=== PATIENT | male | born 1980 | race Caucasian/White ===

== ENCOUNTER 2018-07-09 12:15 | Emergency (ER) | payer OTHER ==
[~2018-07-09 12:15] MED LIST: ASP325 PO; CITA-156 PO; IBU200 PO; LOR10 PO; LORA10TA2 PO; PEN250 PO; PER PO
[2018-07-09] MEDS ORDERED: VALE445C4 PO (12:27)
[2018-07-09] MEDS ORDERED: MULT1TAB54 PO (12:27)
[2018-07-09] MEDS ORDERED: ST.300CA17 PO (12:27)
[2018-07-09] MEDS ORDERED: ACET-1966 PO (12:27)
--- NOTE | 2018-07-09 12:29 | ER Report ---
History and Physical Time Seen By MD: 12:27 Hx. of Stated Complaint: Patient with burn to right lower forearm from steam HPI/ROS CHIEF COMPLAINT: Burn to right forearm HISTORY OF PRESENT ILLNESS: Patient was working in the kitchen and was exposed to he did water vapor sustaining burn to his right forearm. His occurred just prior to coming into the emergency department. Last tetanus shot was in 2013. REVIEW OF SYSTEMS: Respiratory: No cough, no dyspnea. Cardiovascular: No chest pain, no palpitations. Gastrointestinal: No vomiting, no abdominal pain. Musculoskeletal: No back pain. Burn to right forearm Allergies: Coded Allergies: No Known Allergies (Verified Allergy, Mild, 07/09/18) Home Meds Active Scripts Oxycodone Hcl/Acetaminophen (PERCOCET 5-325 MG TABLET) 1 Each Tablet, 1-2 EACH PO Q6H for PAIN, #30 TAB 0 Refills no more than 6 tablets in a 24 hour period Prov:FRANC GASTELUM MD 07/09/18 Reported Medications Valerian Root (VALERIAN ROOT) 445 Mg Capsule, 445 MG PO BID, CAPSULE 07/09/18 Paula's Wort (PAULA'S WORT) 300 Mg Capsule, 300 MG PO BID, CAPSULE 07/09/18 Acetaminophen (TYLENOL) 325 Mg Tablet, 325 MG PO DAILY, TAB 07/09/18 Multivitamin (MULTI-VITAMIN DAILY) 1 Each Tablet, 1 EACH PO DAILY 07/09/18 Discontinued Reported Medications Loratadine (Loratadine) 10 Mg Tablet, 10 MG PO, 0 Refills 02/26/11 Ibuprofen (Motrin) 200 Mg Tab, 200 MG PO, #20 0 Refills 02/26/11 Past Medical/Surgical History Noncontributory towards his chief complaint Hx Smoking: Yes Exposure to Second Hand Smoke?: Yes Hx Substance Use Disorder: No Hx Alcohol Use: No Constitutional Vital Sign - Last 24 Hours 07/09/18 07/09/18 07/09/18 07/09/18 12:19 12:20 12:30 12:45 Temp 99.2 Pulse 94 88 94 Resp 16 B/P (MAP) 151/104 (120) 151/104 143/100 (114) Pulse Ox 92 89 93 O2 Delivery Room Air Physical Exam General appearance: Alert no distress. Respiratory: Chest is non tender, lungs are clear to auscultation. Cardiac: Regular rate and rhythm Examination of the right forearm shows a burn that is approximately 4% body surface area that is superficial partial thickness. No evidence of blistering yet. The burn is not circumferential. The burn involves the volar surface of the right forearm. Medical Decision Making ED Course/Re-evaluation ED Course Plan at this time will be bacitracin dressing to the forearm also give appropriate pain medicine. Decision to Disposition Date: Jul 09, 2018 Decision to Disposition Time: 13:30 Depart Departure Latest Vital Signs Vital Signs Date Time Temp Pulse Resp B/P (MAP) Pulse Ox O2 Delivery O2 Flow Rate FiO2 07/09/18 12:45 94 93 07/09/18 12:30 143/100 (114) 07/09/18 12:20 99.2 16 Room Air Impression: Primary Impression: Burn of forearm, right, second degree Condition: Improved Disposition: HOME OR SELF-CARE New Scripts Oxycodone Hcl/Acetaminophen (PERCOCET 5-325 MG TABLET) 1 Each Tablet 1-2 EACH PO Q6H for PAIN, #30 TAB 0 Refills no more than 6 tablets in a 24 hour period Prov: FRANC GASTELUM MD 07/09/18 Departure Forms: ER Transition Record, Medications Reconciliation, Off Work/School Form, School or Work Release?: Work Number of days to be released: 2 Patient Portal Information Patient Instructions: Second Degree Burn (DC) Problem Qualifiers Primary Impression: Burn of forearm, right, second degree Encounter type: initial encounter Qualified Codes: T22.211A - Burn of second degree of right forearm, initial encounter FRANC GASTELUM MD Jul 09, 2018 12:29
[2018-07-09 12:30] VITALS: BP 143/100
[2018-07-09] MEDS ORDERED: OXYC-865 PO (12:43)
== END 2018-07-09 12:56 | disposition home or self-care (01) ==
LOC: ER 12:50
DX: T22.211A Burn of second degree of right forearm, initial encounter (principal)
CPT/HCPCS: 99282

== ENCOUNTER → 2018-12-25 | Outpatient (CLI) | payer OTHER ==
[~2018-12-25] MED LIST changes: +ACET-1966 PO; +MULT1TAB54 PO; +OXYC-865 PO; +ST.300CA17 PO; +VALE445C4 PO
--- NOTE | 2018-12-25 17:15 | RADIOLOGY IMAGING REPORT ---
FACILITY: [facility] PATIENT NAME: Lawrence George : 1980 MR: [id number] V: [id number] EXAM DATE: ORDERING PHYSICIAN: HOMER MCKEON TECHNOLOGIST: Location: [facility] Patient: Lawrence George : 1980 Visit/Account:[id number] Date of Sevice: 12/25/2018 Exam: US SOFT TISSUE NON-SPECIFIC Indication: , Evaluate for hernia Comparison: None available Findings: Focused ultrasound of the right lower quadrant demonstrates intact fascial planes without e vidence of hernia. No fluid collection, areas of inflammation or mass are identified. IMPRESSION: 1. No evidence of hernia Report Dictated By: Mario Polanco at 12/25/2018 5:11 PM Report E-Signed By: Mario Polanco at 12/25/2018 5:12 PM [id number]
== END ==
LOC: US 01:31
PROVIDERS: ATTEND Physician Assistant
DX: R10.31 Right lower quadrant pain (principal)
CPT/HCPCS: 76999

== ENCOUNTER 2019-02-27 14:38 | Emergency (ER) | payer OTHER ==
[2019-02-27] MEDS ORDERED: LORA-802 PO (14:42)
--- NOTE | 2019-02-27 14:50 | ER Report ---
History and Physical Time Seen By MD: 14:44 Hx. of Stated Complaint: PAIN IN GROIN OVER PAST 2 MONTHS, WORSENING TODAY HPI/ROS CHIEF COMPLAINT: Possible hernia HISTORY OF PRESENT ILLNESS: This is a 38-year-old male who presents to the emergency department for possible hernia. Patient states that about 2 months ago he thinks that he was at work lifting something at work which may have been the impetus for his right lower quadrant pain. Patient states that he did follow up with urgent care this past week, had an ultrasound which was negative for any concerning findings. They did discuss a CT at that time but elected not to however the pain is increased so much so that he decided come in for an evaluation. Patient states that he does have right lower quadrant pain there is a "lump" in the right lower quadrant that's painful, increases pain with bowel movements, sneezing or coughing, if he applies firm pressure does seem to relieve some of the discomfort. He denies fevers, however he had a few chills today. Denies chest pain or shortness of breath. No dysuria. No significant changes in bowel habits other than pain with bowel movements. No rashes. REVIEW OF SYSTEMS: Constitutional: As above. Eyes: No discharge. ENT: No sore throat. Cardiovascular: No chest pain, no palpitations. Respiratory: No cough, no shortness of breath. Gastrointestinal: As above. Genitourinary: No hematuria. Musculoskeletal: No back pain. Skin: No rashes. Neurological: No headache. Allergies: Coded Allergies: No Known Allergies (Verified Allergy, Mild, 02/27/19) Home Meds Active Scripts Hydrocodone Bit/Acetaminophen (HYDROCODON-ACETAMINOPHEN 5-325) 1 Each Tablet, 1 EACH PO Q4-6H PRN for PAIN, #6 TAB Prov:JOSÉ MIGUEL TORRE INSURANCE APPRAISER-BC 02/27/19 Reported Medications Loratadine (CLARITIN) 10 Mg Tablet, 10 MG PO 02/27/19 Valerian Root (VALERIAN ROOT) 445 Mg Capsule, 445 MG PO BID, CAPSULE 07/09/18 [place]'s Wort (COCO'S WORT) 300 Mg Capsule, 300 MG PO BID, CAPSULE 07/09/18 Discontinued Reported Medications Acetaminophen (TYLENOL) 325 Mg Tablet, 325 MG PO DAILY, TAB 07/09/18 Multivitamin (MULTI-VITAMIN DAILY) 1 Each Tablet, 1 EACH PO DAILY 07/09/18 Discontinued Scripts Oxycodone Hcl/Acetaminophen (PERCOCET 5-325 MG TABLET) 1 Each Tablet, 1-2 EACH PO Q6H for PAIN, #30 TAB 0 Refills no more than 6 tablets in a 24 hour period Prov:FRANC GASTELUM MD 07/09/18 Past Medical/Surgical History Patient has a past medical and surgical history of wisdom tooth extraction, occasionally uses marijuana otherwise no severe past medical history. Reviewed Nurses Notes: Yes Hx Smoking: Yes Exposure to Second Hand Smoke?: Yes Hx Substance Use Disorder: No Hx Alcohol Use: No Constitutional Vital Sign - Last 24 Hours 02/27/19 02/27/19 02/27/19 02/27/19 14:42 15:30 15:38 16:00 Temp 98.4 Pulse 75 76 56 Resp 16 B/P (MAP) 126/88 134/94 (107) 121/86 (98) Pulse Ox 93 93 96 O2 Delivery Room Air O2 Flow Rate 2.0 02/27/19 16:30 Pulse 62 B/P (MAP) 132/91 (105) Pulse Ox 98 Physical Exam General Appearance: The patient is alert, has no immediate need for airway protection and no signs of toxicity. Eyes: Pupils equal and round no pallor or injection. ENT, Mouth: Mucous membranes are moist. Respiratory: There are no retractions, lungs are clear to auscultation. Cardiovascular: Regular rate and rhythm. No murmurs, clicks or rubs. Gastrointestinal: Abdomen is soft, tenderness to the right lower quadrant in the inguinal region, I am able to palpate a mass, bulge when the patient is bearing down, the areas able to reduce on its own however this does cause quite a bit of pain. Genitourinary: Right testicle hanging all within the left, positive cremasteric reflex bilaterally. No hernias felt in the testicles. Neurological: Alert no intensive 4. Moving all extremities. Following all c ommands. No focal neuro deficits. Skin: Warm and dry, no rashes. Musculoskeletal: Neck is supple non tender. Extremities are nontender, nonswollen and have full range of motion. DIFFERENTIAL DIAGNOSIS: After history and physical exam differential diagnosis was considered for abdominal pain including but not limited to appendicitis, hernia, cholecystitis, gastritis and urinary tract infection. Medical Decision Making Data Points Result Diagram: 02/27/19 1515 02/27/19 1515 Laboratory Hematology Test 02/27/19 15:15 Red Blood Count 4.72 M/uL (4.00-5.60) Mean Corpuscular Volume 91.1 fL (80.0-96.0) Mean Corpuscular Hemoglobin 30.4 pg (26.0-33.0) Mean Corpuscular Hemoglobin Concent 33.3 g/dL (32.0-36.0) Red Cell Distribution Width 13.4 % (11.5-14.5) Mean Platelet Volume 8.5 fL (7.2-11.1) Neutrophils (%) (Auto) 55.7 % (39.4-72.5) Lymphocytes (%) (Auto) 35.3 % (17.6-49.6) Monocytes (%) (Auto) 5.2 % (4.1-12.4) Eosinophils (%) (Auto) 2.9 % (0.4-6.7) Basophils (%) (Auto) 0.9 % (0.3-1.4) Nucleated RBC Relative Count (auto) 0.0 /100WBC Neutrophils # (Auto) 3.4 K/uL (2.0-7.4) Lymphocytes # (Auto) 2.1 K/uL (1.3-3.6) Monocytes # (Auto) 0.3 K/uL (0.3-1.0) Eosinophils # (Auto) 0.2 K/uL (0.0-0.5) Basophils # (Auto) 0.1 K/uL (0.0-0.1) Nucleated RBC Absolute Count (auto) 0.00 K/uL Sodium Level 142 mmol/L (137-145) Potassium Level 3.8 mmol/L (3.5-5.0) Chloride Level 107 mmol/L (98-107) Carbon Dioxide Level 23 mmol/L (22-30) Blood Urea Nitrogen 15 mg/dl (9-21) Creatinine 0.90 mg/dl (0.66-1.25) Glomerular Filtration Rate Calc > 60.0 Random Glucose 89 mg/dl (75-110) Calcium Level 9.1 mg/dl (8.4-10.2) Total Bilirubin 0.4 mg/dl (0.2-1.3) Aspartate Amino Transf (AST/SGOT) 22 U/L (0-35) Alanine Aminotransferase (ALT/SGPT) 36 U/L (0-56) Alkaline Phosphatase 62 U/L (0-126) Total Protein 7.3 g/dl (6.3-8.2) Albumin 4.6 g/dl (3.5-5.0) Chemistry Test 02/27/19 15:15 White Blood Count 6.1 k/uL (4.5-11.0) Red Blood Count 4.72 M/uL (4.00-5.60) Hemoglobin 14.3 g/dL (14.0-18.0) Hematocrit 43.0 % (42.0-52.0) Mean Corpuscular Volume 91.1 fL (80.0-96.0) Mean Corpuscular Hemoglobin 30.4 pg (26.0-33.0) Mean Corpuscular Hemoglobin Concent 33.3 g/dL (32.0-36.0) Red Cell Distribution Width 13.4 % (11.5-14.5) Platelet Count 220 K/uL (150-450) Mean Platelet Volume 8.5 fL (7.2-11.1) Neutrophils (%) (Auto) 55.7 % (39.4-72.5) Lymphocytes (%) (Auto) 35.3 % (17.6-49.6) Monocytes (%) (Auto) 5.2 % (4.1-12.4) Eosinophils (%) (Auto) 2.9 % (0.4-6.7) Basophils (%) (Auto) 0.9 % (0.3-1.4) Nucleated RBC Relative Count (auto) 0.0 /100WBC Neutrophils # (Auto) 3.4 K/uL (2.0-7.4) Lymphocytes # (Auto) 2.1 K/uL (1.3-3.6) Monocytes # (Auto) 0.3 K/uL (0.3-1.0) Eosinophils # (Auto) 0.2 K/uL (0.0-0.5) Basophils # (Auto) 0.1 K/uL (0.0-0.1) Nucleated RBC Absolute Count (auto) 0.00 K/uL Glomerular Filtration Rate Calc > 60.0 Calcium Level 9.1 mg/dl (8.4-10.2) Total Bilirubin 0.4 mg/dl (0.2-1.3) Aspartate Amino Transf (AST/SGOT) 22 U/L (0-35) Alanine Aminotransferase (ALT/SGPT) 36 U/L (0-56) Alkaline Phosphatase 62 U/L (0-126) Total Protein 7.3 g/dl (6.3-8.2) Albumin 4.6 g/dl (3.5-5.0) EKG/Imaging Imaging PATIENT NAME: Lawrence George : 1980 MR: [id number] V: [id number] EXAM DATE: ORDERING PHYSICIAN: JOSÉ MIGUEL TORRE TECHNOLOGIST: Location: [facility] [place] Patient: Lawrence George : 1980 Visit/Account:[id number] Date of Sevice: 02/27/2019 CT ABDOMEN PELVIS W/ CON History: 38-year-old male with right-sided abdominal pain.. Technique: CT images were obtained through the abdomen and pelvis with i ntravenous contrast using: Isovue-370 80 mls. Coronal and sagittal reformations were then created. One of the following dose optimization techniques was utilized in the performance of this exam: Automated exposure control; adjustment of the mA and/or kV according to the patient's size; or use of an iterative reconstruction technique. Specific details can be referenced in the facility's radiology CT exam operational policy. Comparison study: None Findings: Lung bases: Negative Liver: There is no finding of focal lesion in the liver to suggest metastatic disease.There is no hepatic or portal vein thrombosis. Biliary: The gallbladder is unremarkable and there is no gallstone disease or biliary ductal dilatation. Spleen: Negative. Adrenals: Negative Pancreas: Negative. Kidneys/genitourinary/retroperitoneum: No findings of a solid or cystic mass. No findings of hydronephrosis or nephrolithiasis. There is no retroperitoneal lymphadenopathy. Bowel/peritoneum/mesentery: There is a normal appendix in the right lower quadrant. There are scattered diverticula throughout the left and sigmoid colon but there are no findings of diverticulitis. There are no sites of bowel wall thickening. Pelvic/genital urinary: The bladder is unremarkable. There is no inguinal hernia . Vessels: Negative. Lymph node: Negative. Body wall/bones: Negative Peritoneal cavity: No findings of ascites or pneumoperitoneum. IMPRESSION: 1. Normal appendix, normal kidneys and normal gallbladder. No findings to explain this patient's abdominal pain. 2. Diverticulosis of the sigmoid colon without findings of inflammatory change to suggest diverticulitis. Report Dictated By: Sunny Mac MD at 02/27/2019 4:11 PM Report E-Signed By: Sunny Mac MD at 02/27/2019 4:17 PM WSN:[id number] ED Course/Re-evaluation Clinical Indication for ER IV: IV Access ED Course The patient was admitted to room. A history and physical were obtained. Differential diagnoses were considered. IV was started. CBC, CMP were obtained. UA was collected. Lab studies unremarkable. A CT of the abdomen and pelvis was negative for any acute abnormalities. A believe that the patient does have an inguinal hernia, this is reducible, given the fact that the patient has had increased pain, there is a possibility the patient will need surgery, I did recommend following up with Dr. Funes or Dr. Pearson for reevaluation and discussion of surgery. Patient expressed or standing, was agreeable with this plan care discharged home. I did send the patient home with a small dose of hydrocodone for severe pain. Decision to Disposition Date: Feb 27, 2019 Decision to Disposition Time: 16:35 Depart Departure Latest Vital Signs Vital Signs Date Time Temp Pulse Resp B/P (MAP) Pulse Ox O2 Delivery O2 Flow Rate FiO2 02/27/19 16:30 62 132/91 (105) 98 02/27/19 15:38 2.0 02/27/19 14:42 98.4 16 Room Air Impression: Primary Impression: Inguinal hernia Additional Impression: Diverticulosis Condition: Improved Disposition: HOME OR SELF-CARE Referrals: ERIN PEARSON 5 Days YASMIN ALSTON MD New Scripts Hydrocodone Bit/Acetaminophen (HYDROCODON-ACETAMINOPHEN 5-325) 1 Each Tablet 1 EACH PO Q4-6H PRN for PAIN, #6 TAB Prov: JOSÉ MIGUEL TORRE Hugo INSURANCE APPRAISER-BC 02/27/19 Patient Instructions: Inguinal Hernia (ED), Inguinal Hernia Repair (GEN) Additional Instructions: Please contact Dr. Pearson or Dr. Alston to discuss the possibility of a hernia repair. When sneezing, coughing or bearing down, you can apply firm but gentle pressure to the area causing the pain. Take Ibuprofen or Tylenol as needed for pain. Take the lortab for severe pain, no drinking alcohol, no driving or operating machinery while taking narcotics. Drink plenty of water. Get plenty of rest. Be sure to eat a high fiber diet. Return to the ED for any other concerns or worsening symptoms. Problem Qualifiers Primary Impression: Inguinal hernia Obstruction and gangrene presence: without obstruction or gangrene Laterality: unilateral Recurrence: not specified as recurrent Qualified Codes: K40.90 - Unilateral inguinal hernia, without obstruction or gangrene, not specified as recurrent JOSÉ MIGUEL TORREP-BC Feb 27, 2019 14:50
[2019-02-27] MEDS ORDERED: MORPHINE 4 MG/ML SDV IVP ONE (15:10)
[2019-02-27] MEDS ORDERED: NS(*) 0.9% 1000 ML BAG 1,000 ML IV ONE (15:10)
[2019-02-27] MEDS ORDERED: IOPAMIDOL 76% 100 ML INFUS BTL 100 ML ONE (15:23)
[2019-02-27 15:32] LABS: PLATELET COUNT, AUTOMATED 220 K/uL (150-450)
--- NOTE | 2019-02-27 16:22 | RADIOLOGY IMAGING REPORT ---
FACILITY: [facility] PATIENT NAME: Lawrence George : 1980 MR: [id number] V: [id number] EXAM DATE: ORDERING PHYSICIAN: JOSÉ MIGUEL TORRE TECHNOLOGIST: Location: [facility] [place] Patient: Lawrence George : 1980 Visit/Account:[id number] Date of Sevice: 02/27/2019 CT ABDOMEN PELVIS W/ CON History: 38-year-old male with right-sided abdominal pain.. Technique: CT images were obtained through the abdomen and pelvis with intravenous contrast using: I sovue-370 80 mls. Coronal and sagittal reformations were then created. One of the following dose optimization techniques was utilized in the performance of this exam: Autom ated exposure control; adjustment of the mA and/or kV according to the patient's size; or use of an i terative reconstruction technique. Specific details can be referenced in the facility's radiology C T exam operational policy. Comparison study: None Findings: Lung bases: Negative Liver: There is no finding of focal lesion in the liver to suggest metastatic disease.There is no hep atic or portal vein thrombosis. Biliary: The gallbladder is unremarkable and there is no gallstone disease or biliary ductal dilatat ion. Spleen: Negative. Adrenals: Negative Pancreas: Negative. Kidneys/genitourinary/retroperitoneum: No findings of a solid or cystic mass. No findings of hydronep hrosis or nephrolithiasis. There is no retroperitoneal lymphadenopathy. Bowel/peritoneum/mesentery: There is a normal appendix in the right lower quadrant. There are scatter ed diverticula throughout the left and sigmoid colon but there are no findings of diverticulitis. The re are no sites of bowel wall thickening. Pelvic/genital urinary: The bladder is unremarkable. There is no inguinal hernia. Vessels: Negative. Lymph node: Negative. Body wall/bones: Negative Peritoneal cavity: No findings of ascites or pneumoperitoneum. IMPRESSION: 1. Normal appendix, normal kidneys and normal gallbladder. No findings to explain this patient's abdo lizeth pain. 2. Diverticulosis of the sigmoid colon without findings of inflammatory change to suggest diverticuli tis. Report Dictated By: Sunny Mac MD at 02/27/2019 4:11 PM Report E-Signed By: Sunny Mac MD at 02/27/2019 4:17 PM WSN:[id number]
[2019-02-27 16:30] VITALS: BP 132/91
[2019-02-27] MEDS ORDERED: HYDR-385 PO (16:38)
== END 2019-02-27 16:48 | disposition home or self-care (01) ==
LOC: ER 14:54
DX: K40.90 Unilateral inguinal hernia, without obstruction or gangrene, not specified as recurrent (principal); K57.30 Diverticulosis of large intestine without perforation or abscess without bleeding
CPT/HCPCS: 74177; 85025; 96361; 96374; 99284; J2270; J7030; Q9967; 82040; 82247; 82310; 82374; 82435; 82565; 82947; 84075; 84132; 84155; 84295; 84450; 84460; 84520

== ENCOUNTER 2019-03-01 18:03 | Emergency (ER) | payer OTHER ==
[~2019-03-01 18:03] MED LIST changes: +HYDR-385 PO; +LORA-802 PO
[2019-03-01 18:17] VITALS: BP 144/104
--- NOTE | 2019-03-01 18:30 | ER Report ---
History and Physical Time Seen By MD: 18:28 Hx. of Stated Complaint: WORSENING PAIN TODAY AND POPPING OUT HPI/ROS CHIEF COMPLAINT: increasing pain and popping sensation with his right inguinal hernia HISTORY OF PRESENT ILLNESS: This is a 38 year old male. He was seen in the ER 2 days ago, diagnosed with inguinal hernia on the right side. This reduces. Has an appointment to see Dr. Pearson on Friday (2 days). Noted to have increasing pain, feeling the area bulging popping in and out with a slight popping sensation and increasing pain. Feels like it reduces back in. No nausea or vomiting. Normal bowels. Eating and drinking normally. Normal urination. No fevers or chills. Allergies: Coded Allergies: No Known Allergies (Verified Allergy, Mild, 02/27/19) Home Meds Active Scripts Hydrocodone Bit/Acetaminophen (HYDROCODON-ACETAMINOPHEN 5-325) 1 Each Tablet, 1 EACH PO Q4-6H PRN for PAIN, #6 TAB Prov:JOSÉ MIGUEL TORRE STRATEGIC MARKETING ASSOCIATE-BC 02/27/19 Reported Medications Loratadine (CLARITIN) 10 Mg Tablet, 10 MG PO 02/27/19 Valerian Root (VALERIAN ROOT) 445 Mg Capsule, 445 MG PO BID, CAPSULE 07/09/18 Paula's Wort (PAULA'S WORT) 300 Mg Capsule, 300 MG PO BID, CAPSULE 07/09/18 Discontinued Reported Medications Acetaminophen (TYLENOL) 325 Mg Tablet, 325 MG PO DAILY, TAB 07/09/18 Multivitamin (MULTI-VITAMIN DAILY) 1 Each Tablet, 1 EACH PO DAILY 07/09/18 Discontinued Scripts Oxycodone Hcl/Acetaminophen (PERCOCET 5-325 MG TABLET) 1 Each Tablet, 1-2 EACH PO Q6H for PAIN, #30 TAB 0 Refills no more than 6 tablets in a 24 hour period Prov:FRANC GASTELUM MD 07/09/18 Reviewed Nurses Notes: Yes Hx Smoking: Yes Exposure to Second Hand Smoke?: Yes Hx Substance Use Disorder: No Hx Alcohol Use: No Constitutional Vital Sign - Last 24 Hours 03/01/19 18:17 Temp 98.2 Pulse 65 Resp 16 B/P (MAP) 144/104 Pulse Ox 89 Physical Exam General: Alert, no distress. Cardiovascular: Regular rate and rhythm. Gastrointestinal: Soft abdomen, non tenderness except over the right inguinal area. Bulging with increased abdominal pressure, feels like a direct hernia, no bulging in inguinal canal. Area does not feel incarcerated. Bulging only with pressure and reduces right away. Medical Decision Making ED Course/Re-evaluation ED Course Increasing pain with the right inguinal hernia, but reduces and is not incarcerated. Discussed with Dr. Gamboa, recommended follow-up with Dr. Pearson in the office tomorrow. Gave instructions on warning signs to watch for, severe pain, vomiting, fever, or the bulging getting stuck and not reducing. Decision to Disposition Date: Mar 01, 2019 Decision to Disposition Time: 19:14 Depart Departure Latest Vital Signs Vital Signs Date Time Temp Pulse Resp B/P (MAP) Pulse Ox O2 Delivery O2 Flow Rate FiO2 03/01/19 18:17 98.2 65 16 144/104 89 Impression: Primary Impression: Inguinal hernia Condition: Improved Disposition: HOME OR SELF-CARE Patient Instructions: Inguinal Hernia (ED) Additional Instructions: Please call Dr. Pearson tomorrow morning. Dr. Gamboa recommended being seen tomorrow to discuss outpatient surgery. Return if severe pain or if bulging does not reduce back into the abdomen, or severe pain with vomiting, or fevers. You can continue to use Ibuprofen or Aleve as needed for pain. You can also continue to use the pain medicine Hydrocodone/APAP 5/325, one every 4 hours as needed for severe pain. Problem Qualifiers Primary Impression: Inguinal hernia Obstruction and gangrene presence: without obstruction or gangrene Laterality: unilateral Recurrence: non-recurrent Qualified Codes: K40.90 - Unilateral inguinal hernia, without obstruction or gangrene, not specified as recurrent DANIEL ORNELAS MD Mar 01, 2019 18:30
[2019-03-01] MEDS ORDERED: ACET/HYDROC 5/325MG TH ER ONLY 2 TAB/BOTTLE PO ONE (20:05)
[2019-03-03] MEDS ORDERED: HYDR-653 PO (08:55)
[2019-03-03] MEDS ORDERED: ACET-2146 PO (11:29)
[2019-03-03] MEDS ORDERED: IBUP-56 PO (11:29)
== END 2019-03-01 20:29 | disposition home or self-care (01) ==
LOC: ER 18:26
DX: K40.90 Unilateral inguinal hernia, without obstruction or gangrene, not specified as recurrent (principal)
CPT/HCPCS: 99283

== ENCOUNTER 2019-03-04 00:54 | Day surgery (SDC) | payer OTHER ==
[~2019-03-04] VITALS: Ht 182.9 cm; Wt 85.3 kg
[~2019-03-04 00:54] MED LIST changes: +ACET-2146 PO; +HYDR-653 PO; +IBUP-56 PO
[2019-03-04 08:45] VITALS: BP 107/88
[2019-03-04] MEDS ORDERED: ROCURONIUM BR 10 MG/ML 5 ML SY 5 ML ONE (09:22)
[2019-03-04] MEDS ORDERED: LIDOCAINE MPF 1% 5 ML VIAL ONE (09:22)
[2019-03-04] MEDS ORDERED: ONDANSETRON 4 MG/2 ML VIAL ONE (09:22)
[2019-03-04] MEDS ORDERED: DEXAMETHASONE SOD 4 MG/ML VIAL ONE (09:22)
[2019-03-04] MEDS ORDERED: METOCLOPRAMIDE 10 MG/2 ML SDV ONE (09:22)
[2019-03-04] MEDS ORDERED: PROPOFOL EMUL(*) 10MG/ML 20 ML 20 ML ONE (09:22)
[2019-03-04] MEDS ORDERED: ROPIVACAINE 0.2% 20 ML VIAL ONE ×2 (09:27→12:58)
[2019-03-04] MEDS ORDERED: NORMOSOL R SOLN(*) 1000 ML BAG 1,000 ML IV PRN (09:30)
[2019-03-04] MEDS ORDERED: MIDAZOLAM 2 MG/2 ML VIAL IVP PRN (09:30)
[2019-03-04] MEDS ORDERED: LIDOCAINE/SOD BICARB 8.4% SYR ID ONE (09:30)
[2019-03-04] MEDS ORDERED: FAMOTIDINE 20 MG TAB PO ONE (09:30)
[2019-03-04] MEDS ORDERED: fentaNYL CITR 250 MCG/5 ML AMP ONE (09:33)
[2019-03-04] MEDS ORDERED: ceFAZolin(*) 2GM/D5W 50ML 50 ML IVPB ONE (10:10)
[2019-03-04] MEDS ORDERED: SUGAMMADEX SOD 200 MG/2 ML SDV ONE (10:37)
[2019-03-04] MEDS ORDERED: BUPIVACAINE/EPI 0.5% 50ML VIAL INFIL ONE (10:43)
[2019-03-04] MEDS ORDERED: fentaNYL CITR 100 MCG/2 ML AMP ONE (13:23)
[2019-03-04] MEDS ORDERED: KETOROLAC 30 MG/ML VIAL ONE (13:30)
[2019-03-04] MEDS ORDERED: ACETAMINOPHEN(*)1000 MG/100 ML 100 ML IVPB ONE (13:31)
--- NOTE | 2019-03-04 13:32 | Short(Outpt) Discharge Summary ---
Discharge Summary Reason for Hosp/Final Diag: (1) Inguinal hernia Status: Acute Hospital Course & Plan: bilat ing hernia repair with mesh. pt tolerated the procedure well and will be discharged home when criteria met. Departure Discharge to: Home Discharge Instructions Home Meds Active Scripts Hydrocodone Bit/Acetaminophen (NORCO 5-325 TABLET) 1 Each Tablet, 1 EACH PO Q4H PRN for PAIN, #20 TAB Prov:ERIN FOSTER 03/03/19 Reported Medications Ibuprofen (IBUPROFEN) 200 Mg Tablet, 2 TAB PO HS, TAB 03/03/19 Acetaminophen 500 Mg Tab (ACETAMINOPHEN EXTRA STRENGTH) 500 Mg Tablet, 500 MG PO BID, TAB 03/03/19 Loratadine (CLARITIN) 10 Mg Tablet, 10 MG PO 02/27/19 Valerian Root (VALERIAN ROOT) 445 Mg Capsule, 445 MG PO BID, CAPSULE 07/09/18 [place]'s Wort (COCO'S WORT) 300 Mg Capsule, 300 MG PO BID, CAPSULE 07/09/18 Discontinued Reported Medications Acetaminophen (TYLENOL) 325 Mg Tablet, 325 MG PO DAILY, TAB 07/09/18 Multivitamin (MULTI-VITAMIN DAILY) 1 Each Tablet, 1 EACH PO DAILY 07/09/18 Discontinued Scripts Hydrocodone Bit/Acetaminophen (HYDROCODON-ACETAMINOPHEN 5-325) 1 Each Tablet, 1 EACH PO Q4-6H PRN for PAIN, #6 TAB Prov:JOSÉ MIGUEL TORRE PRODUCTION WOOD CRAFTSMAN-BC 02/27/19 Oxycodone Hcl/Acetaminophen (PERCOCET 5-325 MG TABLET) 1 Each Tablet, 1-2 EACH PO Q6H for PAIN, #30 TAB 0 Refills no more than 6 tablets in a 24 hour period Prov:FRANC GASTELUM MD 07/09/18 Diet: Regular Activity: No Heavy Lifting Special Instructions: no lifting more than 20 lbs for 2 wks. take stool softener while taking pain meds. f/u dr. gi foster 2 wks ([phone]). ERIN FOSTER Mar 04, 2019 13:32
--- NOTE | 2019-03-04 13:35 | Post Operative Progress Note ---
Post Operative Progress Note Date: Mar 04, 2019 Time: 13:32 Surgeon: dr. gi foster Pastry Sous Chef: none Anesthesia: gen, local dr. juarez Pre-Op Diagnosis: right ing hernia Post-Op Diagnosis: bilat ing hernia Findings: bilat ing hernia Procedure(s): robotic bilat ing hernia repair with mesh Complications: none Estimated Blood Loss: minimal Date OP Note Dictated: Mar 04, 2019 Time OP Note Dictated: 13:33 ERIN FOSTER Mar 04, 2019 13:35
[2019-03-04 14:00] VITALS: BP_SYST 113; BP_SYST 129; BP_DIAS 70; BP_DIAS 88
[2019-03-04 14:15] VITALS: BP 117/74
[2019-03-04 14:30] VITALS: BP 125/68
[2019-03-04 14:49] VITALS: BP 109/67
[2019-03-04] MEDS ORDERED: APAP/HYDROCODONE 325/5 TAB ONE (14:59)
[2019-03-05] MEDS ORDERED: HYDR-389 PO (14:03)
--- NOTE | 2019-03-19 16:01 | OPERATIVE REPORT 1 ---
EVENT DATE: March 04, 2019 SURGEON: Gabriel Pearson MD ANESTHESIOLOGIST: Kirby Yates MD ANESTHESIA: General and local. ELECTRONIC DEVICE REPAIRER: None. PREOPERATIVE DIAGNOSIS Right inguinal hernia. POSTOPERATIVE DIAGNOSIS Bilateral inguinal hernias. PROCEDURE PERFORMED Robotic bilateral inguinal hernia repair with mesh. FLUIDS IV crystalloid. ESTIMATED BLOOD LOSS Minimal. SPECIMENS None. COMPLICATIONS None. INDICATIONS This is a 38-year-old male with right groin pain for several months. He also feels a bulge in the area. On physical exam, patient has swelling in his right groin. He also is tender to palpation in his right groin greater than in his left groin. Risks and benefits of the procedure were explained. Consent was signed. DESCRIPTION OF PROCEDURE Patient was taken to the operating room and placed in the supine position. General anesthesia was administered per anesthesia team. Patient was prepped and draped in normal sterile fashion. Local analgesia was injected into the dermis, and a small incision was made. The umbilical stump was grasped and elevated. A Veress needle was inserted. Pneumoperitoneum was achieved. An 8 mm port was placed. After injecting local analgesia under direct vision, a left-sided 8 mm port and a right-sided 8 mm port were placed. Upon inspection of the abdomen, there was no injury upon entry. Patient had bilateral indirect inguinal hernias that were small to medium in size. ProGrip meshes 10 x 15 cm were placed in the abdomen as well as the absorbable stitches. The robot was then docked. Cautery scissors were used to create the peritoneal flap on the right. This was taken down below the level of Mejia ligament and below the level of the iliopubic tract. The indirect hernia sac was completely reduced. Hemostasis was assured on the left. Peritoneal flap was created with cautery scissors. This also was taken down below the level of the iliopubic tract and Mejia ligament, and the hernia sac was completely reduced. Care was taken to protect cord structures and the inferior epigastric vessels. Hemostasis was assured. The mesh was placed on each side and made to lie flat. Absorbable V- Loc stitches were used to reapproximate the peritoneal flap. Defects in the peritoneal flap were closed with Vicryl stitches. Hemostasis was assured. Ports were removed under direct vision. Hemoperitoneum was relieved. Final port was removed. All skin incisions were closed with 4-0 Monocryl subcuticular sutures. More local analgesia was injected. Appropriate dressings were applied. Patient tolerated the procedure well. There were no complications. [facility]
== END 2019-03-04 14:00 | disposition home or self-care (01) ==
LOC: OR 00:54
PROVIDERS: ATTEND Surgery
DX: K40.20 Bilateral inguinal hernia, without obstruction or gangrene, not specified as recurrent (principal)
CPT/HCPCS: 49650; 76942; C1781; J0131; J1100; J1885; J2001; J2250; J2405; J2704; J2765; J2795; J3010; S2900; J0690

== ENCOUNTER 2019-03-05 11:49 | Emergency (ER) | payer OTHER ==
--- NOTE | 2019-03-05 11:59 | ER Report ---
History and Physical Time Seen By MD: 11:53 Hx. of Stated Complaint: S/P ALBERTINA INGINUAL HERNIA REPAIR YESTERDAY WITH DR. PEARSON. C/O INCREASED PAIN AND INABILITY TO SLEEP SINCE "BLOCK WORE OFF AT 3AM". HPI/ROS CHIEF COMPLAINT: Abdominal pain HISTORY OF PRESENT ILLNESS: This is a 38-year-old male who presents to the emerg ency department for abdominal pain. The patient was seen in the emergency department last week, diagnosed with a hernia, had bilateral inguinal hernia repair yesterday, the surgery went well. Patient states that she woke up around 2:30 had a bowel movement with some gas, again around 6:30 in the morning had a bowel movement denies straining, however shortly thereafter the "block", that they gave him began to wear off and he had a significant increase in his pain. He states the pain radiated up into his right shoulder into his chest, he began shaking. Try contacting his surgeon, ultimately ended up coming to the ER for an evaluation. Patient also states that he took 3 doses of his pain medication, last dose was around 10:15 this morning. Patient arrives sitting erect in the gurney, no apparent distress, he states his pain is about a 10 out of 10 and is lower abdomen, into his testicles. No nausea or vomiting. No fevers. No back pain. REVIEW OF SYSTEMS: Constitutional: No fever, no chills. Eyes: No discharge. ENT: No sore throat. Cardiovascular: No chest pain, no palpitations. Respiratory: No cough, no shortness of breath. Gastrointestinal: As above. Genitourinary: No hematuria. Musculoskeletal: No back pain. Skin: No rashes. Neurological: No headache. Allergies: Coded Allergies: No Known Allergies (Verified Allergy, Mild, 02/27/19) Home Meds Active Scripts Acetaminophen/Hydrocodone (HYDROCODON-ACETAMINOPH 7.5-325) 1 Each Ea, 1 EACH PO Q6H, #12 EA 0 Refills Prov:JOSÉ MIGUEL TORRE [employer] 03/05/19 Hydrocodone Bit/Acetaminophen (NORCO 5-325 TABLET) 1 Each Tablet, 1 EACH PO Q4H PRN for PAIN, #20 TAB Prov:ERIN PEARSON 03/03/19 Reported Medications Ibuprofen (IBUPROFEN) 200 Mg Tablet, 2 TAB PO HS, TAB 03/03/19 Acetaminophen 500 Mg Tab (ACETAMINOPHEN EXTRA STRENGTH) 500 Mg Tablet, 500 MG PO BID, TAB 03/03/19 Loratadine (CLARITIN) 10 Mg Tablet, 10 MG PO 02/27/19 Valerian Root (VALERIAN ROOT) 445 Mg Capsule, 445 MG PO BID, CAPSULE 07/09/18 [place]'s Wort (COCO'S WORT) 300 Mg Capsule, 300 MG PO BID, CAPSULE 07/09/18 Discontinued Reported Medications Acetaminophen (TYLENOL) 325 Mg Tablet, 325 MG PO DAILY, TAB 07/09/18 Multivitamin (MULTI-VITAMIN DAILY) 1 Each Tablet, 1 EACH PO DAILY 07/09/18 Discontinued Scripts Hydrocodone Bit/Acetaminophen (HYDROCODON-ACETAMINOPHEN 5-325) 1 Each Tablet, 1 EACH PO Q4-6H PRN for PAIN, #6 TAB Prov:JOSÉ MIGUEL TORRE [employer] 02/27/19 Oxycodone Hcl/Acetaminophen (PERCOCET 5-325 MG TABLET) 1 Each Tablet, 1-2 EACH PO Q6H for PAIN, #30 TAB 0 Refills no more than 6 tablets in a 24 hour period Prov:FRANC GASTELUM MD 07/09/18 Past Medical/Surgical History The patient has a past medical and surgical history wisdom teeth extraction, hernia repair, anxiety, depression, seasonal marijuana use recently quit smoking cigarettes. Reviewed Nurses Notes: Yes Hx Smoking: Yes (QUIT 3 MONTH AGO) Smoking Status: Former Smoker Exposure to Second Hand Smoke?: No Hx Substance Use Disorder: No Hx Alcohol Use: No Constitutional Vital Sign - Last 24 Hours 03/05/19 03/05/19 03/05/19 03/05/19 11:49 11:51 11:54 12:00 Temp 98.3 Pulse ??? 86 Resp 16 B/P (MAP) 148/97 (114) 148/97 130/85 (100) Pulse Ox 95 O2 Delivery Room Air 03/05/19 03/05/19 03/05/19 03/05/19 12:30 13:00 13:05 13:30 Pulse 78 B/P (MAP) 132/94 (107) 122/81 (95) 119/84 (96) Pulse Ox 93 03/05/19 03/05/19 03/05/19 13:35 14:00 14:05 Pulse 69 69 B/P (MAP) 140/100 (113) Pulse Ox 93 95 Physical Exam General Appearance: The patient is alert, has no immediate need for airway protection and no signs of toxicity. Eyes: Pupils equal and round no pallor or injection. ENT, Mouth: Mucous membranes are moist. Respiratory: There are no retractions, lungs are clear to auscultation. Cardiovascular: Regular rate and rhythm. No murmurs, clicks or rubs. Gastrointestinal: Abdomen is soft, round mild tenderness throughout the abdomen, distant but normoactive bowel sounds in all quadrants. Neurological: Alert and oriented 4. Moving all extremities. Feeling all commands. No focal neuro deficits. Skin: 3 small incisions over the abdomen from surgery look intact, no dehiscence, no drainage, no erythema or cellulitis. Musculoskeletal: Neck is supple non tender. Extremities are nontender, nonswollen and have full range of motion. DIFFERENTIAL DIAGNOSIS: After history and physical exam differential diagnosis was considered for abdominal pain including but not limited to appendicitis, cholecystitis, myocardial infarction, bowel obstruction, gastritis and urinary tract infection. Medical Decision Making Data Points Result Diagram: 03/05/19 1320 Laboratory Hematology Test 03/05/19 13:20 Red Blood Count 4.50 M/uL (4.00-5.60) Mean Corpuscular Volume 90.7 fL (80.0-96.0) Mean Corpuscular Hemoglobin 30.8 pg (26.0-33.0) Mean Corpuscular Hemoglobin Concent 34.0 g/dL (32.0-36.0) Red Cell Distribution Width 13.6 % (11.5-14.5) Mean Platelet Volume 8.1 fL (7.2-11.1) Neutrophils (%) (Auto) 61.1 % (39.4-72.5) Lymphocytes (%) (Auto) 29.1 % (17.6-49.6) Monocytes (%) (Auto) 7.7 % (4.1-12.4) Eosinophils (%) (Auto) 1.5 % (0.4-6.7) Basophils (%) (Auto) 0.6 % (0.3-1.4) Nucleated RBC Relative Count (auto) 0.1 /100WBC Neutrophils # (Auto) 4.8 K/uL (2.0-7.4) Lymphocytes # (Auto) 2.3 K/uL (1.3-3.6) Monocytes # (Auto) 0.6 K/uL (0.3-1.0) Eosinophils # (Auto) 0.1 K/uL (0.0-0.5) Basophils # (Auto) 0.0 K/uL (0.0-0.1) Nucleated RBC Absolute Count (auto) 0.01 K/uL Peripheral Blood Smear No Y/N Chemistry Test 03/05/19 13:20 White Blood Count 7.9 k/uL (4.5-11.0) Red Blood Count 4.50 M/uL (4.00-5.60) Hemoglobin 13.9 g/dL (14.0-18.0) Hematocrit 40.8 % (42.0-52.0) Mean Corpuscular Volume 90.7 fL (80.0-96.0) Mean Corpuscular Hemoglobin 30.8 pg (26.0-33.0) Mean Corpuscular Hemoglobin Concent 34.0 g/dL (32.0-36.0) Red Cell Distribution Width 13.6 % (11.5-14.5) Platelet Count 210 K/uL (150-450) Mean Platelet Volume 8.1 fL (7.2-11.1) Neutrophils (%) (Auto) 61.1 % (39.4-72.5) Lymphocytes (%) (Auto) 29.1 % (17.6-49.6) Monocytes (%) (Auto) 7.7 % (4.1-12.4) Eosinophils (%) (Auto) 1.5 % (0.4-6.7) Basophils (%) (Auto) 0.6 % (0.3-1.4) Nucleated RBC Relative Count (auto) 0.1 /100WBC Neutrophils # (Auto) 4.8 K/uL (2.0-7.4) Lymphocytes # (Auto) 2.3 K/uL (1.3-3.6) Monocytes # (Auto) 0.6 K/uL (0.3-1.0) Eosinophils # (Auto) 0.1 K/uL (0.0-0.5) Basophils # (Auto) 0.0 K/uL (0.0-0.1) Nucleated RBC Absolute Count (auto) 0.01 K/uL Peripheral Blood Smear No Y/N EKG/Imaging EKG Interpretation 12 lead EKG: Time of EKG 1225. Rhythm: Normal sinus rhythm, ventricular rate 77 bpm. [place]: normal QRS: normal ST segments: normal ED Course/Re-evaluation ED Course Patient was admitted to room. A history and physical were obtained. Differential diagnoses were considered. After an observation patient, did obtain an EKG showing normal sinus rhythm, he was given 1 mg IM Dilaudid, a CBC was collected. Laboratory studies normal. I did contact Dr. Pearson as noted below, he did come and evaluate the patient himself patient had significant improvement of his pain, no concerning findings, patient was given a prescription for 7.5/325 hydrocodone's will follow-up with Dr. Pearson for reevaluation next week. The patient had not aggressions or concerns at this time and discharged home. 03/05/2019 1:19:50 pm I did speak with Dr. Pearson, we will collect a CBC, I did update the patient. Pain has improved after the injection. 03/05/2019 1:46:10 pm laboratory studies unremarkable, Dr. Pearson updated, he is coming to evaluate the patient. Decision to Disposition Date: Mar 05, 2019 Decision to Disposition Time: 13:51 Depart Departure Latest Vital Signs Vital Signs Date Time Temp Pulse Resp B/P (MAP) Pulse Ox O2 Delivery O2 Flow Rate FiO2 03/05/19 14:05 69 95 03/05/19 14:00 140/100 (113) 03/05/19 11:54 98.3 16 Room Air Impression: Primary Impression: Postoperative pain Additional Impression: Status post inguinal hernia repair Condition: Improved Disposition: HOME OR SELF-CARE Referrals: ERIN PEARSON [place] Acetaminophen/Hydrocodone (HYDROCODON-ACETAMINOPH 7.5-325) 1 Each Ea 1 EACH PO Q6H, #12 EA 0 Refills Prov: JOSÉ MIGUEL [employer] 03/05/19 Patient Instructions: Inguinal Hernia Repair (DC) Additional Instructions: Please take your medications as prescribed. Follow up with Dr. Pearson as scheduled. Drink plenty of water. Be sure to take the stool softeners to prevent constipation. Get plenty of rest. Return to the ED for any other concerns or worsening symptoms. Discard the lortab 325 and start the 7.5/325 lortabs. Problem Qualifiers JOSÉ MIGUEL [employer]RE [employer] Mar 05, 2019 11:59
[2019-03-05] MEDS ORDERED: HYDROMORPHONE HCL 1 MG/ML SYRINGE IM ONE (12:25)
--- NOTE | 2019-03-05 12:36 | EKG ---
FACILITY: [facility] - [place], [place] PATIENT NAME: OBIE MERCHANT : [id number] MR: [id number] V: [id number] EXAM DATE: ORDERING PHYSICIAN: JOSÉ MIGUEL TORRE TECHNOLOGIST: JOSE LUIS Test Reason : r shoulder post op pain Blood Pressure : / mmHG Vent. Rate : 077 BPM Atrial Rate : 077 BPM P-R Int : 144 ms QRS Dur : 078 ms QT Int : 360 ms P-R-T Axes : 046 037 026 degrees QTc Int : 407 ms Normal sinus rhythm Normal ECG No previous ECGs available Confirmed by KASEY YAÑEZ ([id number]) on 03/05/2019 12:49:41 PM Referred By: JOSÉ MIGUEL Confirmed By:KASEY YAÑEZ
[2019-03-05 13:32] LABS: PLATELET COUNT, AUTOMATED 210 K/uL (150-450)
[2019-03-05 14:00] VITALS: BP 140/100
[2019-03-05] MEDS ORDERED: HYDR-389 PO (14:03)
== END 2019-03-05 14:13 | disposition home or self-care (01) ==
LOC: ER 12:03
DX: G89.18 Other acute postprocedural pain (principal); R07.9 Chest pain, unspecified
CPT/HCPCS: 85025; 93005; 96372; 99283; J1170